=== PATIENT | male | born 1980 | race Caucasian/White ===

== ENCOUNTER 2017-01-25 06:54 | Day surgery (SDC) | payer SELFPAY ==
[~2017-01-25] VITALS: Ht 180.3 cm; Wt 65.8 kg
[~2017-01-25 06:54] MED LIST: DEPO-MEDROL40 MG/ML IM; NO; TORADOL30 MG/VIAL IJ
[2017-01-25] MEDS ORDERED: PERCOCET 5/325M1 TAB PO (09:15)
[2017-01-25 10:39] VITALS: BP 108/80
== END 2017-01-25 10:20 | disposition home or self-care (01) | DRG 352 ==
LOC: ORM 06:54
PROVIDERS: ATTEND Surgery
PROC: 0YU60JZ Supplement Left Inguinal Region with Synthetic Substitute, Open Approach (ICD-10-PCS; principal; 2017-01-25)
DX: K40.90 Unilateral inguinal hernia, without obstruction or gangrene, not specified as recurrent (principal)

== ENCOUNTER 2022-03-16 10:38 | Emergency (ER) | payer SELFPAY ==
[2022-03-16] VITALS (12 sets, daily range): BP systolic 98–124; BP diastolic 57–77
[~2022-03-16] VITALS: Ht 180.3 cm; Wt 63.5 kg
[~2022-03-16 10:38] MED LIST changes: +PERCOCET 5/325M1 TAB PO
[2022-03-16 11:30] LABS: HEMOGLOBIN 15.7 g/dl (14.0-18.0); IMMATURE GRANULOCYTES 0.1 % (0.0-5.0); MEAN CORPUSCULAR HGB 31.6 pG CALC (26.0-32.0); MEAN CORPUSCULAR HGB CONC 33.4 g/dL CAL (32.0-36.0); NEUT# 7.2 thou/uL (1.82-7.42); RED BLOOD COUNT 4.97 mill/uL (4.70-6.10); RED CELL DISTRI WIDTH 13.1 % (11.5-15.5)
[2022-03-16 11:31] LABS: MEAN CELL VOLUME 94.6 fL CALC (80.0-100.0)
[2022-03-16 11:46] LABS: ALBUMIN 4.5 g/dL (3.2-5.0); ALKALINE PHOSPHATASE 57 u/l (38-126); AMYLASE 68 u/l (30-110); ANION GAP 16 (6-22 (CALC)); BILIRUBIN, TOTAL 0.6 mg/dL (0.0-1.4); BUN 18 mg/dL (9-20); BUN/CREATININE RATIO 22 (12-20 (CALC)); CARBON DIOXIDE 23 mmol/l (22-30); CHLORIDE 105 mmol/l (95-108); CREATININE 0.8 mg/dL (0.7-1.3); GFR FOR AFR.AMER. > 60 ML/MIN (>=60 (CALC)); GFR OTHER RACES > 60 ML/MIN (>=60 (CALC)); LIPASE 96 u/l (23-300); POTASSIUM 4.3 mmol/l (3.5-5.1); SGOT/AST 25 u/l (17-59); SODIUM 140 mmol/l (137-146); TOTAL PROTEIN 7.5 g/dL (6.3-8.2)
[2022-03-16 11:54] LABS: MYOGLOBIN 20 ng/mL (0 - 121)
[2022-03-16 12:28] LABS: URINE BILIRUBIN - DIPSTICK NEGATIVE (NEGATIVE); URINE BLOOD DIPSTICK NEGATIVE (NEGATIVE); URINE COLOR YELLOW; URINE GLUCOSE - DIPSTICK NEGATIVE (NEGATIVE); URINE KETONE NEGATIVE (NEGATIVE); URINE LEUK ESTERASE NEGATIVE (NEGATIVE); URINE PH 7.5 (4.5-8.0); URINE PROTEIN - DIPSTICK NEGATIVE (NEG-TRACE); URINE UROBILINOGEN - DIPSTICK 0.2 E.U./dL (0.2)
[2022-03-16 12:29] LABS: URINE NITRITE - DIPSTICK NEGATIVE (Negative)
[2022-03-16] MEDS ORDERED: NAPROXEN500 MG PO (12:50)
[2022-03-16] MEDS ORDERED: PREVACID30 M3 PO (12:50)
== END 2022-03-16 13:07 | disposition home or self-care (01) | DRG 392 ==
LOC: ED 10:38
PROVIDERS: Emergency Medicine
DX: K29.70 Gastritis, unspecified, without bleeding (principal); M79.10 Myalgia, unspecified site; Z20.822 Contact with and (suspected) exposure to COVID-19

== ENCOUNTER 2024-11-11 10:01 | Emergency (ER) | payer SELFPAY ==
[~2024-11-11] VITALS: Ht 180.3 cm; Wt 145.0 kg
[~2024-11-11 10:01] MED LIST changes: +NAPROXEN500 MG PO; +PREVACID30 M3 PO
[2024-11-11 11:00] VITALS: BP 105/76
[2024-11-11 11:16] VITALS: BP 111/69
[2024-11-11 11:30] VITALS: BP 111/75
[2024-11-11 11:45] VITALS: BP 108/73
[2024-11-11 12:24] LABS: BASO% 0.2 % (0-3); HEMATOCRIT 44.6 % (39.0-50.0); HEMOGLOBIN 14.4 g/dl (14.0-18.0); IMMATURE GRANULOCYTES 0.2 % (0.0-5.0); MEAN CELL VOLUME 95.5 fL CALC (80.0-100.0); MEAN CORPUSCULAR HGB 30.8 pG CALC (26.0-32.0); MEAN CORPUSCULAR HGB CONC 32.3 g/dL CAL (32.0-36.0); MONO% 5.8 % (2-13); NEUT# 7.32 thou/uL (1.82-7.42); NEUT% 80.8 % (42-76); RED BLOOD COUNT 4.67 mill/uL (4.70-6.10); RED CELL DISTRI WIDTH 12.6 % (11.5-15.5)
[2024-11-11 12:27] LABS: ALBUMIN 4.3 g/dL (3.2-5.0); ALKALINE PHOSPHATASE 47 u/l (38-126); ANION GAP 10 (6-22 (CALC)); BILIRUBIN, TOTAL 0.7 mg/dL (0.2-1.3); BUN 22 mg/dL (9-20); BUN/CREATININE RATIO 25 (12-20 (CALC)); CARBON DIOXIDE 25 mmol/l (22-30); CHLORIDE 106 mmol/l (95-108); CREATININE 0.9 mg/dL (0.7-1.3); ESTIMATED GFR 107 ML/MIN (>=90 (CALC)); POTASSIUM 4.1 mmol/l (3.5-5.1); SGOT/AST 39 u/l (17-59); SODIUM 137 mmol/l (137-146); TOTAL PROTEIN 6.9 g/dL (6.3-8.2)
[2024-11-11 12:52] VITALS: BP 108/73
== END 2024-11-11 12:52 | disposition home or self-care (01) | DRG 313 ==
LOC: ED 10:01
PROVIDERS: Family Medicine
DX: R07.9 Chest pain, unspecified (principal); Z20.822 Contact with and (suspected) exposure to COVID-19